=== PATIENT | male | born 1990 | race African-American/Black ===

== ENCOUNTER 2024-02-08 11:01 | Emergency (ER) | payer SELFPAY ==
[~2024-02-08] VITALS: Ht 180.3 cm; Wt 95.0 kg
[2024-02-08 11:04] VITALS: O2SAT 99
[2024-02-08 11:31] VITALS: BP 129/69; PULSE 75; RESP 16; TEMP 98.4; O2SAT 100
[2024-02-08] MEDS ORDERED: ACET-2708 MT (11:55)
[2024-02-08] MEDS ORDERED: IBUP-2029 MT (11:55)
[2024-02-08] MEDS ORDERED: AMOX-494 MT (11:55)
[2024-02-08] MEDS: ACETAMINOPHEN 500MG TABLET PO ONE (12:34)
[2024-02-08] MEDS: IBUPROFEN 600MG TABLET PO ONE (12:34)
== END 2024-02-08 12:44 | disposition home or self-care (01) ==
LOC: ER 11:01
DX: R68.84 Jaw pain (principal); K04.7 Periapical abscess without sinus; Z79.899 Other long term (current) drug therapy
CPT/HCPCS: 99283